=== PATIENT | female | born 1950 | race Caucasian/White ===

== ENCOUNTER → 2017-09-08 | Outpatient (CLI) | payer BC | LOC: RAD 09-03 06:42 | DX: Z12.31 Encounter for screening mammogram for malignant neoplasm of breast (principal) ==

== ENCOUNTER → 2018-09-08 | Outpatient (CLI) | payer BC, OTHER | LOC: RAD 02:00 | DX: Z12.31 Encounter for screening mammogram for malignant neoplasm of breast (principal) ==

== ENCOUNTER → 2019-09-04 | Outpatient (CLI) | payer BC | LOC: RAD 10:18 → BC 19:27 → EDSTATUS 19:31 | DX: Z12.31 Encounter for screening mammogram for malignant neoplasm of breast (principal) ==